=== PATIENT | male | born 1965 | race Hispanic/Latino ===

== ENCOUNTER 2020-04-30 20:12 | Emergency (ER) | payer OTHER ==
[~2020-04-30] VITALS: Ht 170.2 cm; Wt 136.1 kg
--- NOTE | 2020-04-30 20:22 | Emergency Department Note ---
History of Present Illnes History of Present Illness Chief Complaint: Extremity Trauma/Pain History of Present Illness This is a 54 year old male, with a history of hypertension, hyperlipidemia, ASCVD status post CABG, NIDDM, hypothyroidism and GERD, who was walking down the steps of his trailer, going outside, when he missed the last step and inverted his left ankle and then fell onto his right knee, landing on a cinder block. This incident occurred approximately 3 hours prior to arrival. He has not taken anything for the pain. He came in due to pain on weightbearing. Patient said he has twisted his ankle in the past, but denies any previous ankle fracture. He also denies any previous knee injury. Pt denies any history of neuropathy. Historian: Patient Arrival Mode: Car Carbon Dioxide Operator Required: No Onset (how long ago): hour(s) (3) Location: left ankle, right knee Quality: throbbing, aching, Radiation: Reports non-radiation Severity: moderate Onset quality: sudden Duration (how long): hour(s) (3) Timing of current episode: constant Progression: unchanged Chronicity: new Context: Reports trauma/injury; Denies recent illness, Denies recent surgery Relieving factors: none Exacerbating factors: other (pain is worse with weight bearing) Associated symptoms: Reports denies other symptoms; Denies chest pain, Denies fever/chills Treatments prior to arrival: none Risk factors: diabetes Past Medical/Family History Physician Review I have reviewed the patient's past medical and family history. Any updates have been documented here. Past Medical History Recent Fever: No Clinical Suspicion of Infectio: No New/Unexplained Change in Ment: No Past Medical History: Hypertension, Diabetes (NIDDM), [place], Hypothyroidism, GERD, Hyperlipedemia Past Surgical History: CABG (x 4 vessels in 2016.) Other Surgery: Lap Band Social History Smoking Cessation: Never Smoker Alcohol Use: None Any Illegal Drug Use: No TB Exposure/Symptoms: No Physically hurt or threatened: No Other Any Pre-Existing Lines (PICC,: No Is patient up to date on immun: No Review of Systems Review of Systems Constitutional: Reports no symptoms EENTM: Reports no symptoms Cardiovascular: Reports no symptoms Respiratory: Reports no symptoms Gastrointestinal: Reports no symptoms Musculoskeletal: Reports as per HPI Integumentary: Reports other (abrasion on right knee) Neurological: Reports no symptoms; Denies numbness, Denies paresthesia, Denies tingling, Denies weakness Review of other systems: All other systems negative Physical Exam Related Data Allergies: Coded Allergies: No Known Drug Allergies (Verified Allergy, Unknown, 04/30/20) Vital signs reviewed: Yes Physical Exam CONSTITUTIONAL Constitutional: Present well-developed, Present well-nourished, Present morbi dly obese HENT HENT: Present normocephalic, Present atraumatic, Present oropharynx clear/francesca st, Present nose normal HENT L/R: Present left ext ear normal, Present right ext ear normal EYES Eyes: Reports PERRL, Reports conjunctivae normal NECK Neck: Present ROM normal PULMONARY Pulmonary: Present effort normal, Present breath sounds normal CARDIOVASCULAR Cardiovascular: Present regular rhythm, Present heart sounds normal, Present capillary refill normal, Present normal rate GASTROINTESTINAL GENITOURINARY SKIN Skin: Present warm, Present dry, Present other (superficial abrasion overlying the right patella tendon) MUSCULOSKELETAL Musculoskeletal: Present edema (left lateral ankle and right anterior tibial area; ), Present tenderness (ttp of left lateral malleolus, and pain with inversion and flexion of left ankle; right knee - ttp below the patella; no crepitus, neg anterior drawer sign; ), Present swelling (left lateral ankle and right anterior knee;) NEUROLOGICAL PSYCHOLOGICAL Psychological: Present mood/affect normal, Present judgement normal Results Imaging Imaging results reviewed: Yes Impressions [place] [address] Patient Name: BUD LARA MR #: [id number] : 1965 Age/Sex: 54/M Req #: [id number] Adm Physician: Ordered by: JOANNE PALACIOS MD Report #: [id number] Location: [facility] Room/Bed: Procedure: [id number] HOPD/KNEE 3VW RT - HOPD Exam Date: 04/30/20 Exam Time: 2100 REPORT STATUS: Signed KNEE 3VW RT - HOPD, ANKLE 3VIEW LT - HOPD - 3 views HISTORY: Knee and ankle pain after recent fall. COMPARISON: None available. FINDINGS: KNEE: No acute fracture or dislocation. Benign calcifications within the soft tissues and mild atherosclerotic vascular calcification. There are multiple surgical clips in the medial proximal lower leg. The soft tissues are otherwise normal. ANKLE: No acute fracture or dislocation. Mild atherosclerotic vascular calcification. Calcaneal enthesophyte and plantar spur. IMPRESSION: No acute fracture or dislocation of the knee and ankle. Signed by: Ming Arana MD on 04/30/2020 10:05 PM Dictated By: MING ARANA MD 04 Transcribed By: LI on 04/30/202204 COPY TO: JOANNE PALACIOS MD~ Assessment & Plan Medical Decision Making MDM - Apply ice to the left ankle and right knee for 15-20 minutes at least 4 times per day over the next 48 hours, to help with pain and swelling. - Keep both lower extremities elevated level of the heart, as much as possible, to help with pain and swelling, for the next 2 days. - Take medications as directed. They should increase water and fiber intake, to prevent constipation with the pain medication. Recommend that you use a walker to assist with ambulation, until your left ankle and right knee are no longer impeding your ability to walk safely - Follow-up with your primary care physician, if your symptoms persist, despite the above treatment. Assessment & Plan Final Impression: (1) Left ankle sprain (2) Contusion of knee, right (3) Fall (4) DM (diabetes mellitus) (5) Hypertension Depart Disposition: HOME, SELF-skilled nursing Meds Active Scripts Acetaminophen With Codeine (TYLENOL WITH CODEINE #3 TABLET) 1 Each Tablet, 1-2 TAB PO Q6H PRN for pain, #20 TAB 0 Refills DO NOt TAKE AND DRIVE OR OPERATE MACHINERY Prov:JOANNE PALACIOS MD 04/30/20 JOANNE PALACIOS MD Apr 30, 2020 20:22
[2020-04-30] MEDS ORDERED: HYDROCODONE/APAP 5MG-325MG TAB PO ONE (20:45)
--- OUTSIDE RECORDS SUMMARY | 2020-04-30 20:52 | XMS REPORT | Continuity of Care Document ---
Author Author [facility] t Organization [facility] Address [address] [place] [address] Phone Unavailable Care Team Providers Care Lozenge Maker Name Role Phone Unavailable Unavailable Payers Payer Name Policy Type Policy Number Effective Date Expiration Date S ource Problems Condition Name Condition Details Condition Category Status Onset Date Resolution Date Last Treatment Date Treating Clinician Comments Source GERD (gastroesophageal reflux disease) GERD (gastroesophagea l reflux disease) Disease Active 2015-10-27 00:00:00 [facility] Elbow stiffness Elbow stiffness Disease Active 2012-08-29 00:00:00 [facility] Monteggia fracture Monteggia fracture Disease Active 2012-08-29 00:00:0 0 [facility] Obesity Obesity Disease Active 2012-08-29 00:00:00 [facility] Fracture of proximal ulna Fracture of proximal ulna Disease Ac tive 2012-08-13 00:00:00 [facility] Coronary artery disease Coronary artery disease Disease Active [facility] Diabetes mellitus Diabetes mellitus Disease Active [facility] Hyperlipidemia Hyperlipidemia Disease Active [facility] HTN (hypertension) HTN (hypertension) Disease Active [facility] Allergies, Adverse Reactions, Alerts Allergy Name Allergy Type Status Severity Reaction(s) Onset Date Inacti ve Date Treating Clinician Comments Source No Known Allergies DA Active U 2019-06-01 00:00:00 [facility] No Known Allergies DA Active U 2012-07-31 00:00:00 [facility] Family History Family Member Diagnosis Comments Start Date Stop Date Source Natural mother Asthma [facility] Natural mother Diabetes [facility] Cancer [facility] Social History Social Habit Start Date Stop Date Quantity Comments Source Sex Assigned At [facility] Alcohol intake 2015-11-02 00:00:00 2015-11-02 00:00:00 Current non-drinker of alcohol (finding) [facility] Smoking Status Start Date Stop Date Source Never smoker [facility] Medications Ordered Medication Name Filled Medication Name Start Date Stop Da te Current Medication? Ordering Clinician Indication Dosage Frequency Signature (SIG) Comments Components Source glyBURIDE micronized (GLYNASE) 6 mg tablet 2015-09-15 00:00: 00 Yes Diabetes type 2, controlled 6mg Q.5D Take 1 table t by mouth 2 times daily (before meals). [facility] clopidogrel (PLAVIX) 75 mg tablet 2015-09-15 00:00:00 Yes Coronary artery disease 75mg QD Take 1 tablet by mouth daily [facility] esomeprazole (NEXIUM) 40 mg delayed release capsule 2014-09 00:00:00 Yes GERD (gastroesophageal reflux disease) 40mg QD Take 1 capsule by mouth every morning (before breakfast). [facility] metFORMIN (GLUCOPHAGE) 1,000 mg tablet 2015-09-15 00:00:00 Yes Diabetes mellitus 1000mg Take 1 tablet by mouth 2 times daily (with meal s). [facility] atorvastatin (LIPITOR) 40 mg tablet 2015-08-02 00:00:00 Yes High triglycerides 40mg Take 1 tablet by mouth at bedtime nightly. [facility] fenofibrate nanocrystallized (TRICOR) 48 mg tablet 2015-07 00:00:00 Yes High triglycerides 48mg QD Take 1 tablet by mouth daily. [facility] gemfibrozil (LOPID) 600 mg tablet 2015-06-15 00:00:00 Yes High triglycerides 600mg Q.5D Take 1 tablet by mouth 2 times daily (be fore meals). [facility] lancets 28 gauge 2015-06-03 00:00:00 Yes Type 2 diabetes mellitus without complication by MISCELLANEOUS route 2 times weekly. [facility] blood glucose test strips 2015-06-03 00:00:00 Yes Type 2 diabetes mellitus without complication 2 times weekly. [facility] blood glucose meter 2014-08-31 00:00:00 Yes Anemi a, unspecified Use as directed.. [facility] blood glucose test strips 2014-08-31 00:00:00 Yes Anemia, unspecified Check fasting sugars daily. [facility] simvastatin (ZOCOR) 40 mg tablet 2014-08-21 00:00:00 Yes HLD (hyperlipidemia) 40mg Take 1 tablet by mouth at bedtime nightly . [facility] LANCETS 2013-01-09 00:00:00 Yes Diabetes mellitus One tab po bid [facility] blood glucose meter (PRECISION XTRA) 2013-01-09 00:00:00 Yes Diabetes mellitus Use as directed. [facility] ealt ASPIRIN 81 mg Tab 2010-06-07 00:00:00 Yes 1{tbl} QD Take 1 Tab by mouth daily. [facility] PRECISION XTRA GLUCOMETER 2010-01-04 00:00:00 Yes Diabetes mellitus use to check sugars [facility] PRECISION XTRA TEST STRIPS 2010-01-04 00:00:00 Yes Diabetes mellitus Use to check blood sugars [facility] Immunizations Ordered Immunization Name Filled Immunization Name Date Status Comments Source Influenza Vaccine 2015-07-01 00:00:00 Completed [facility] Tdap Tetanus, diphtheria, acellular pertussis Vaccine 2013-04-16 00:00:00 Completed [facility] Influenza Vaccine 2011-11-22 00:00:00 Completed [facility] Pneumoccoccal 2011-11-22 00:00:00 Completed [facility] Procedures This patient has no known procedures. Plan of Care Planned Activity Planned Date Details Comments Source Future Scheduled Test 2020-06-17 00:00:00 IMM Influenza Seas onal Jun to November (>/= 19 yrs) [code = IMM Influenza Seasonal Jun to November (>/= 19 yrs)] [facility] Scheduled Test 2016-11-02 00:00:00 DM Foot Exam (Year ly) [code = DM Foot Exam (Yearly)] [facility] Scheduled Test 2016-08-30 00:00:00 CORONARY ARTERY DI SEASE AGE 18 AND UP [code = CORONARY ARTERY DISEASE AGE 18 AND UP] [facility] Scheduled Test 2016-08-30 00:00:00 Hemoglobin A1c artem surement (procedure) [code = 73377479] [facility] Scheduled Test 2016-08-30 00:00:00 Urine screening fo r protein (procedure) [code = 137473767] [facility] Scheduled Test 2016-06-28 00:00:00 DM Retinal Exam (Y early) [code = DM Retinal Exam (Yearly)] [facility] Scheduled Test 2013 00:00:00 Screening for mike trevizo neoplasm of colon (procedure) [code = 402645242] [facility] Results Test Description Test Time Test Comments Results Result Comments Source GLUBED 2019-06-02 10:24:00 Test Item GLUBED (test code = GLUBED) 137 mg/dL 74-106 H Performed by certified raw scales operator at [facility] - XR L-SPINE 2/3 [id number] 15:22:00 FAX: Obey Camara MD [phone] [place]: St: REG Name: BUD HARMAN [facility] : [birth year] Age/S: 53/M [address] [facility] Unit #: [id number] Loc: [place] [address] Phys: Obey Camara MD Acct: [id number] Dis Date: Status: REG ER PHONE #: [phone] Exam Date: 06/01/2019 1454 FAX #: [phone] Reason: fall, pain EXAMS: CPT CODE: [id number] XR L-SPINE 2/3 VIEWS [id number] REASON FOR EXAM: fall, pain EXAM ORDER DATE: 06/01/2019 2:41 PM Ordering M.Tania: Obey Camara MD PROCEDURE: - XR L-SPINE 2/3 EWS FINDINGS: 3 views of the lumbar spine were obtained. There is normal alignment of the lumbar spine. The vertebral bodies are unremarka ble in size and shape. The disc spaces are maintained. No evidence of fracture. IMPRESSION: Unremarkable lumbar spine at 1522 Reported and signed by: Alessandro Lowe M.D. CC: Obey Camara MD Technologist: SULTANA VAIL(R) Trnscrd Date/Time/By: 06/01/2019 (1522) : By: [email or web address] Orig Print D/T: S: 06/01/2019 (0855) PAGE 1 Signed Report - XR SACRUM/COCCYX 2 + [id number] 15:21:00 FAX: Obey Camara MD [phone] [place]: St: REG Name: BUD HARMAN [facility] : [birth year] Age/S: 53/M [address] [facility] Unit #: [id number] Loc: [place] [address] Phys: Obey Camara MD Acct: [id number] Dis Date: Status: REG ER PHONE #: [phone] Exam Date: 06/01/2019 1454 FAX #: [phone] Reason: fall, pain EXAMS: CPT CODE: [id number] XR SACRUM/COCCYX 2 + V [id number] REASON FOR EXAM: fall, pain EXAM ORDER DATE: 06/01/2019 2:41 PM Ordering MBritni: Obey Camara MD PROCEDURE: - XR SACRUM/COCCYX 2 + V FINDINGS: 3 views of the sacrum and coccyx were obtained. The osseous structures are unremarkable in size and shape. The sacroiliac j oints are maintained. No evidence of fracture. IMPRESSIO N: Unremarkable sacrum and coccyx at 1521 Reported and signed by: Alessandro saleem M.D. CC: Oeby Camara MD Technologist: SULTANA VAIL(R) Trnscrd Date/Time/By: 06/01/2019 (1521) : By: [email or web address] Orig Print D/T : S: 06/01/2019 (8749) PAGE 1 Sig kiko Report BASIC METABOLIC [id number] 14:54:00* Test Item Value Reference Range Interpretation Comments SODIUM (test code = NA) 138 mmol/L 136-145 N POTASSIUM (test code = K) 3.9 mmol/L 3.5-5.1 N CHLORIDE (test code = CL) 106.0 mmol/L 98-107 N CARBON DIOXIDE (test code = CO2) 24.0 mmol/L 21-32 N ANION GAP (test code = GAP) 11.9 10-20 N GLUCOSE (test code = GLU) 135 mg/dL 74-106 H BLOOD UREA NITROGEN (test code = BUN) 12 mg/dL 7-18 N GLOMERULAR FILTRATION RATE (test code = GFR) > 60 mL/min >=60 Estimated GFR by using Modified MDRD formula.Chronic kidney disease is defined as either kidney damageor GFR <60 mL/min/1.73 m2 for >3 months. CREATININE (test code = CREAT) 1.00 mg/dL 0.7-1.3 N BUN/CREATININE RATIO (test code = BUN/CREA) 12.4 10-20 N CALCIUM (test code = CA) 9.0 mg/dL 8.5-10.1 N PROTHROMBIN [id number] 14:43:00* Test Item Value Reference Range Interpretation Comments PROTHROMBIN TIME PATIENT (test code = PTP) 11.8 seconds 9.0-14.0 N INTERNATIONAL NORMAL RATIO (test code = INR) 1.0 0.8-1.2 N The therapeutic range for oral anticoagulant therapy formost indications is an international normalized ratio (INR)of between 2.0 and 3.0. The recommended therapeutic INRrange for various clinical situations is listed below: Clinical Situation INR range Pulmonary e mbolism treatment (2.0-3.0)Venous thrombosis treatmentVenous thrombosis prophylaxis (high risk surgery)Prevention of systemic embolism from: Acute myocardial infarction Valvular heart disease Atrial fibrillation Mechanical prosthetic heart valves (2.5-3.5) IS PATIENT ON ANTICOAGULANTS? NTHROMBOPLASTIN TIME [id number] 14:43:00* Test Item Value Reference Range Interpretation Comments THROMBOPLASTIN TIME PARTIAL (test code = PTT) 29.3 seconds 25.0-36. 5 N IS PATIENT ON ANTICOAGULANTS? NCBC W/O [id number] 14:37:00* Test Item Value Reference Range Interpretation Comments WHITE BLOOD CELL (test code = WBC) 11.3 K/mm3 4.5-12.5 N RED BLOOD CELL (test code = RBC) 5.01 mill/mm3 4.0-5.8 N HEMOGLOBIN (test code = HGB) 11.9 gram/dL 13.0-17.5 L HEMATOCRIT (test code = HCT) 38.5 % 42.0-52.0 L MEAN CELL VOLUME (test code = MCV) 76.8 fL 80-98 L MEAN CELL HGB (test code = MCH) 23.8 picogram 27.0-33.0 L MEAN CELL HGB CONCETRATION (test code = MCHC) 30.9 gram/dL 33.0-36. 0 L RED CELL DISTRIBUTION WIDTH (test code = RDW) 17.1 % 11.6-16. 2 H PLATELET COUNT (test code = PLT) 270 K/mm3 150-450 N MEAN PLATELET VOLUME (test code = MPV) 9.2 fL 6.7-11.0 N
--- OUTSIDE RECORDS SUMMARY | 2020-04-30 20:52 | XMS REPORT | Clinical Summary ---
Author Author [facility] Organization [facility] Address Unknown Phone Unavailable Care Team Providers Care Felt Hat Mellowing Machine Operator Name Role Phone PCP Unavailable Allergies Comments Active Allergy Reactions Severity Noted Date No Known Allergies 01/04/2010 Medications End Date Status Medication Sig Dispensed Refills Start Date Active PRECISION XTRA use to check 1 0 GLUCOMETERIndications: sugars 0 Diabetes mellitus Active PRECISION XTRA TEST Use to check 100 5 01/04 STRIPSIndications: blood sugars 0 Diabetes mellitus Active ASPIRIN 81 mg Tab Take 1 Tab by 0 mouth daily. 0 Active LANCETSIndications: One tab po 1 Box 11 Diabetes mellitus bid 3 Active blood glucose meter Use as 1 Kit 0 (PRECISION directed. 3 XTRA)Indications: Diabetes mellitus Active simvastatin (ZOCOR) 40 mg Take 1 tablet 90 tablet 3 tabletIndications: HLD by mouth at 4 (hyperlipidemia) bedtime nightly. Active blood glucose Use as 1 Kit 0 meterIndications: Anemia, directed.. 4 unspecified Active blood glucose test Check fasting 50 Each 3 08/31 stripsIndications: sugars daily. 4 Anemia, unspecified Active lancets 28 by 300 Each 11 gaugeIndications: Type 2 MISCELLANEOUS 5 diabetes mellitus without route 2 times complication weekly. Active blood glucose test 2 times 150 Each 2 01 stripsIndications: Type 2 weekly. 5 diabetes mellitus without complication Active gemfibrozil (LOPID) 600 Take 1 tablet 60 tablet 3 mg tabletIndications: by mouth 2 5 High triglycerides times daily (before meals). Active atorvastatin (LIPITOR) 40 Take 1 tablet 90 tablet 3 mg tabletIndications: by mouth at 5 High triglycerides bedtime nightly. Active fenofibrate Take 1 tablet 90 tablet 3 nanocrystallized (TRICOR) by mouth 5 48 mg tabletIndications: daily. High triglycerides Active glyBURIDE micronized Take 1 tablet 180 tablet 3 (GLYNASE) 6 mg by mouth 2 5 tabletIndications: times daily Diabetes type 2, (before controlled meals). Active clopidogrel (PLAVIX) 75 Take 1 tablet 90 tablet 3 mg tabletIndications: by mouth 5 Coronary artery disease daily Active esomeprazole (NEXIUM) 40 Take 1 90 capsule 3 1 mg delayed release capsule by 5 capsuleIndications: GERD mouth every (gastroesophageal reflux morning disease) (before breakfast). Active metFORMIN (GLUCOPHAGE) Take 1 tablet 180 tablet 1 1 1,000 mg by mouth 2 5 tabletIndications: times daily Diabetes mellitus (with meals). Active Problems Problem Noted Date GERD (gastroesophageal reflux disease) 10/27/2015 Elbow stiffness 08/29/2012 Monteggia fracture 08/29/2012 Obesity 08/29/2012 Fracture of proximal ulna 08/13/2012 Coronary artery disease Diabetes mellitus Hyperlipidemia HTN (hypertension) Immunizations Name Administration Dates Next Due Influenza Vaccine 07/01/2015, 08/21/2014 (Def erred: Patient already had this immunization - sts he received at [facility]), 11/22/2011 Pneumoccoccal 11/22/2011 Tdap Tetanus, diphtheria, 04/16/2013 acellular pertussis Vaccine Family History Medical History Relation Name Comments Asthma Mother Diabetes Mother Hypertension Mother Cancer Sister ovarian Relation Name Status Comments Father Other unknown Mother Alive Sister Alive 2 sisters Sister Social History Date Tobacco Use Types Packs/Day Years Used Never Smoker Smokeless Tobacco: Never Used Tobacco Cessation: Counseling Given: No Drinks/Week oz/Week Comments Alcohol Use No Sex Assigned at Date Recorded Not on file Industry Job Start Date Occupation Not on file Not on file Not on file Travel End Travel History Travel Start No recent travel history available. Last Filed Vital Signs Not on file Plan of Treatment Health Maintenance Due Date Last Done Comments Colorectal Cancer Scrn 2013 Annual (FIT/FOBT) Age 50 to 75 DM Retinal Exam (Yearly) 06/28/2016 06/28/2015, 06/24/2015, 04/09/2013 CORONARY ARTERY DISEASE 08/30/2016 08/30/2015, AGE 18 AND UP 06/03/2015, 08/21/2014, Additional history exists DM HGBA1C (Yearly) 08/30/2016 08/30/2015, 06/03/2015, 08/21/2014, Additional history exists DM Microalbumin Urine 08/30/2016 08/30/2015, Scrn (Yearly) 08/31/2014, 01/11/2013, Additional history exists DM Foot Exam (Yearly) 11/02/2016 11/02/2015, 06/15/2015, 01/10/2013 IMM Influenza Seasonal 06/17/2020 08/02/2015, Jun to November (>/= 19 yrs) 07/01/2015, 09/13/2012 (Postponed), Additional history exists Results Not on fileafter 04/30/2019 Insurance Type Payer Benefit Subscriber ID Effective Phone Address Plan / Dates Group [employer] xxxxxxxxxx 2015-P [phone] [address] [facility] [address] [place] [address] [facility] SELF-PAY SELF-PAY xxxxxx 2015-1 [address] [place] [address]
--- NOTE | 2020-04-30 21:12 | NUR ---
RETURNED TO RM 1. ICE PACKS APPLIED BY LOUIS CHAPMAN
--- NOTE | 2020-04-30 22:08 | Diagnostic Imaging Report ---
KNEE 3VW RT - HOPD, ANKLE 3VIEW LT - HOPD - 3 views HISTORY: Knee and ankle pain after recent fall. COMPARISON: None available. FINDINGS: KNEE: No acute fracture or dislocation. Benign calcifications within the soft tissues and mild atherosclerotic vascular calcification. There are multiple surgical clips in the medial proximal lower leg. The soft tissues are otherwise normal. ANKLE: No acute fracture or dislocation. Mild atherosclerotic vascular calcification. Calcaneal enthesophyte and plantar spur. IMPRESSION: No acute fracture or dislocation of the knee and ankle. Signed by: Bree Arana MD on 04/30/2020 10:05 PM
[2020-04-30] MEDS ORDERED: TYLENOL WITH C1 EACH PO (22:23)
--- NOTE | 2020-04-30 22:25 | NUR ---
APPLIED 4IN LIVAN TO R-KNEE AND L-ANKLE. APPLIED AIR SPLINT TO L-ANKLE
[2020-04-30 22:35] VITALS: BP 158/86
== END 2020-04-30 22:35 | disposition home or self-care (01) ==
LOC: FSED 20:30
DX: S93.402A Sprain of unspecified ligament of left ankle, initial encounter (principal); S80.01XA Contusion of right knee, initial encounter; X50.1XXA Overexertion from prolonged static or awkward postures, initial encounter; Y92.89 Other specified places as the place of occurrence of the external cause; E11.9 Type 2 diabetes mellitus without complications; I10 Essential (primary) hypertension; E78.5 Hyperlipidemia, unspecified; K21.9 Gastro-esophageal reflux disease without esophagitis; I25.2 Old myocardial infarction; Z95.1 Presence of aortocoronary bypass graft; Z98.84 Bariatric surgery status
CPT/HCPCS: 99284

== ENCOUNTER → 2020-07-08 | Day surgery (SDC) | payer OTHER ==
[2020-07-05 14:15] LABS: BASOPHILS # (AUTO) 0.1 (0.0-0.1); BASOPHILS % 0.6 % (0.0-1.0); EOSINOPHILS # (AUTO) 0.2 (0.0-0.4); EOSINOPHILS % 2.6 % (0.0-6.0); HEMOGLOBIN 11.1 g/dL (14.0-18.0); LYMPHOCYTES # (AUTO) 2.4 (1.0-3.2); LYMPHOCYTES % 27.1 % (18.0-39.1); MEAN CORPUSCULAR HEMOGLOBIN 24.4 pg (28-32); MEAN CORPUSCULAR HGB CONC 30.8 g/dL (31-35); MEAN CORPUSCULAR VOLUME 79.3 fL (81-99); MONOCYTES # (AUTO) 0.6 (0.2-0.8); NEUTROPHILS # (AUTO) 5.6 (2.1-6.9); NEUTROPHILS % 62.4 % (38.7-80.0); PLATELET COUNT 297 x10e3/uL (140-360); RED BLOOD COUNT 4.54 x10e6/uL (4.3-5.7); RED CELL DISTRIBUTION WIDTH 15.8 % (11.7-14.4)
[~2020-07-08] VITALS: Ht 170.2 cm; Wt 136.1 kg
[~2020-07-08] MED LIST: FENTANYL CITRATE/PF 100MCG/2 ML INJ ONE; FUROSEMIDE40 MG PO; GLYBURIDE5 MG PO; ISOSORBIDE DINI30 MG; ISOSORBIDE MONO30 MG PO; LEVOTHYROXINE50 MCG PO; LIPITOR20 MG PO; LISINOPRIL10 MG PO; METFORMIN HCL500 M2 PO; METFORMIN HCL500 MG PO; METOPROLOL SUCC50 MG PO; MIDAZOLAM HCL 2 MG/2 ML VIAL ONE; NEXIUM40 MG PO; PLAVIX75 MG PO; PROPOFOL IV EMULSION 10 MG/ML 20 ML VIAL ONE; TYLENOL WITH C1 EACH PO; ZETIA10 MG PO
[2020-07-08 08:50] VITALS: BP 143/81
== END | disposition home or self-care (01) ==
LOC: OR 05:19
PROVIDERS: ATTEND Internal Medicine Gastroenterology
DX: Z12.11 Encounter for screening for malignant neoplasm of colon (principal); D12.0 Benign neoplasm of cecum; K31.7 Polyp of stomach and duodenum; K29.50 Unspecified chronic gastritis without bleeding; K21.00 Gastro-esophageal reflux disease with esophagitis, without bleeding; K44.9 Diaphragmatic hernia without obstruction or gangrene; K21.9 Gastro-esophageal reflux disease without esophagitis; K64.8 Other hemorrhoids; Z71.3 Dietary counseling and surveillance; I25.810 Atherosclerosis of coronary artery bypass graft(s) without angina pectoris; I10 Essential (primary) hypertension; I25.2 Old myocardial infarction; E11.9 Type 2 diabetes mellitus without complications; R05 Cough; E66.01 Morbid (severe) obesity due to excess calories; Z01.810 Encounter for preprocedural cardiovascular examination; Z01.812 Encounter for preprocedural laboratory examination; Z11.59 Encounter for screening for other viral diseases; Z68.42 Body mass index [BMI] 45.0-49.9, adult; Z95.1 Presence of aortocoronary bypass graft; Z95.5 Presence of coronary angioplasty implant and graft
CPT/HCPCS: 36415 ×2; 43239; 45380; 45385; 82948; 85025; 93005; J2250; J2704; J3010; U0002; 45378